=== PATIENT | male | born 1965 | race Caucasian/White ===

== ENCOUNTER 2024-12-13 01:51 | Emergency (ER) | payer MEDICAID, SELFPAY ==
[2024-12-13] VITALS (10 sets, daily range): BP systolic 129–137; BP diastolic 82–90; PULSE 78–95; RESP 20–94; TEMP 36.5–36.9; O2SAT 93–100; BMI 21.1
--- NOTE | 2024-12-13 02:01 | EDNOTE_ITS ---
ED General RME/HPI General Chief complaint: Shortness of Breath/Dyspnea Stated complaint: SOB Time Seen by Provider: 12/13/24 01:56 Arrival date/time: 12/13/24 01:51 RME / HPI RME / HPI narrative: This patient is a 59-year-old male with past medical history of COPD, active smoker smokes 6 cigarettes every day, history of hypertension, meth user presented to the ED with worsening shortness of breath started today associated with cough with phlegm white in color. He denied using oxygen at home, denied chest pain, fever chills, nausea vomiting, abdominal discomfort, burning dysuria. He stated that he could not lay down flat on the bed and also had exertional shortness of breath. He denied noticing any swelling on lower extremities. He is actively smoking and smokes 6 to 7 cigarettes every day. Patient is following up with primary care doctor as outpatient. He does use inhalers however ran out of his inhalers recently and did not recall the name of his inhalers. Patient denied receiving COVID and flu vaccine. He does not have oxygen at home. No recent travel or sick contacts. He endorses some bloating sensation and symptoms of GERD after eating food. Patient was given breathing treatment, Solu-Medrol lidocaine patch and Protonix x 1. Basic labs were ordered. Will follow-up with the basic labs and chest x- ray. Vitals reveal blood pressure 136/82 pulse 95 and respiratory rate 20. He was afebrile and saturating well around 6 L oxygen. Labs showed mildly elevated white count. WBC 10.8. Hemoglobin at 14.4. VBG showed pH 7.34 PCO2 65, PO2 64.Chemistry panel showed electrolytes unremarkable. Mild metabolic alkalosis. Kidney functions were stable. Blood glucose 132. Lactic acid 0.9. Corrected calcium 8.4. Mildly elevated liver enzymes AST 91 and ALT 63. Troponin I was negative. Procalcitonin was negative. Blood alcohol level less than 3. PMH Hypertension PSH not signficant SH smokes 6 cigarretes every day trying to quit smoking. Denies drinking alcohol or illicit drugs Allergies NKDA Home meds inahlers and some BP meds at home 5:30 patient was given additional breathing treatment due to wheezing heard on auscultation and calcium gluconate x 1. Patient was able to ambulate indepe ndently without getting short of breath and desatted only around 88-89% on room air. Will discharge patient after breathing treatment and medications were given on discharge. Patient most likely had acute on chronic COPD exacebration and was not wheezing at the time of discharge and was not hypoxic on ambulation. Patient was advised to take prednisone 40 mg for 5 days Use albuterol inhaler as needed for acute shortness of breath or wheezing as needed 1 puff 4 times a day Patient was advised to take Trelegy inhaler 1 puff every day for 1 week and use as needed In case of emergency or worsening signs/symptoms, call 911 or come back to the ED MD complaint: Worsening shortness of breath and cough Onset (ago): day(s) Associated symptoms: shortness of breath Related Data Previous Rx's ?Medication ?Instructions ?Recorded cipro 500 mg PO Q12HR ##14 3 zofran 4 mg PO Q4-6HRPRN PRN vomiti ng ##20 04/05/13 albuterol sulfate 90 mcg/actuation 1 inh inhalation QI D PRN shortness 12/13/24 aerosol inhaler of breath or wheezing #8.5 g claritza fluticasone fur. 200 mcg-umeclid 1 inh inhalation Q24H #28 ea 12/13/24 62.5 mcg-vilant 25 mcg inhalat.powder (Trelegy Ellipta) prednisone 20 mg tablet 40 mg (2 x 20 mg) PO QDAY 5 days 12/13/24 #10 tabs Allergies Allergy/AdvReac Type Severity Reaction Status Date / Time No Known Allergies Allergy Mild Uncoded 01/07/08 08:44 Review of Systems Review of Systems Systems Reviewed: All systems reviewed, normal except as documented ED Exam Narrative Physical exam: GENERAL APPEARANCE: AxOx4, generally well-appearing male no acute distress. Saturating well on RA HEENT: NC, AT. MMM. EOMI, clear conjunctiva, oropharynx clear. NECK: Supple without lymphadenopathy. No stiffness or restricted ROM. HEART: Mild tachycardia with regular rhythm, normal S1/S2, no m/r/g LUNGS: Moderate expiratory wheezing heard on auscultation. ABDOMEN: Soft, nontender, nondistended with good bowel sounds heard. BACK: No CVAT, no obvious deformity. EXTREMITIES: Without cyanosis, clubbing or edema. NEUROLOGICAL: Grossly nonfocal. Alert and oriented, moving all 4 extremities. CN not formally tested but appear grossly intact. Observed to ambulate with normal gait. Skin: Warm and dry without any rash. Psych: appropriate mood and affect Course Quality Measures none Orders Category Date Time Status EKG (ED ONLY) *Do not use* NOW Care 12/13/24 02:25 Completed Insert IV NOW Care 12/13/24 02:25 Active CXRP [XR chest 1V portable] Stat Exams 12/13/24 02:21 Taken EKG (ED Only) Stat Exams 12/13/24 02:21 Draft Alcohol, Blood Medical Stat Lab 12/13/24 02:35 Completed BNP [B-Type Natriuretic Peptide] Stat Lab 12/13/24 02:35 Completed CBC Stat Lab 12/13/24 02:35 Completed CMP [Comprehensive Metabolic Panel] Stat Lab 12/13/24 02:35 Completed Drug Screen,Urine Stat Lab 12/13/24 02:24 Ordered Lactate (Lactic Acid) Stat Lab 12/13/24 02:35 Completed Mag [Magnesium] Stat Lab 12/13/24 02:35 Completed Phosphorous Stat Lab 12/13/24 02:35 Completed Procalcitonin Stat Lab 12/13/24 02:35 Completed Troponin I Stat Lab 12/13/24 02:35 Completed Urinalysis Stat Lab 12/13/24 02:24 Ordered VBG [Venous Blood Gas] Stat Lab 12/13/24 02:35 Completed Albuterol/Ipratr Rt Mary Carmen [Duoneb Rt Mary Carmen] Med 12/13/24 02:21 Discontinued 3 ml INH X1 ONE Albuterol/Ipratr Rt Mary Carmen [Duoneb Rt Mary Carmen] Med 12/13/24 05:29 Once 3 ml INH X1 ONE MethylPREDNISolone. [SoluMEDROL Inj] Med 12/13/24 02:21 Discontinued 40 mg IVP X1 ONE MethylPREDNISolone.* [SoluMEDROL Inj] Med 12/13/24 02:31 Discontinued 125 mg IVP X1 ONE Nicotine Patch [Nicoderm Patch] Med 12/13/24 02:21 Discontinued 14 mg TOP X1 ONE Pantoprazole Inj [Protonix Inj] Med 12/13/24 02:21 Discontinued 40 mg IV X1 ONE Oxygen Delivery PRN RT 12/13/24 02:21 Active Vital Signs Vital signs: Vital Signs Temperature 97.7 F 12/13/24 01:54 Pulse Rate 95 12/13/24 01:54 Respiratory Rate 20 12/13/24 01:54 Blood Pressure 136/82 H 12/13/24 01:54 Pulse Oximetry (%) 100 12/13/24 01:54 Oxygen Delivery Method Nasal Cannula 12/13/24 01:54 Oxygen Flow Rate 6 12/13/24 01:54 Discharge Plan Plan Patient Disposition: HOME (Self Care) Prescriptions/Referrals Prescriptions/Med Rec: New prednisone 20 mg tablet 40 mg PO QDAY 5 Days Qty: 10 0RF Trelegy Ellipta 200-62.5-25 mcg blister with device 1 inh inhalation Q24H Qty: 28 1RF albuterol sulfate 90 mcg/actuation HFA aerosol inhaler 1 inh inhalation QID PRN (Reason: shortness of breath or wheezing) Qty: 8.5 1RF No Action cipro 500 mg PO Q12HR Qty: 14 0RF zofran 4 mg PO Q4-6HRPRN PRN (Reason: vomiting) Qty: 20 0RF Problem List Clinical Impression: Acute exacerbation of chronic obstructive airways disease, Uses inhaler device Patient/Caregiver Discharge Instructions Other Activity Instructions:: Patient most likely had acute on chronic COPD exacebration and was not wheezing at the time of discharge and was not hypoxic on ambulation. Patient was advised to take prednisone 40 mg for 5 days Use albuterol inhaler 1 puff 4 times a day as needed for acute shortness of breath or wheezing as needed Patient was advised to take Trelegy inhaler 1 puff every day for 1 week In case of emergency or worsening signs/symptoms, call 911 or come back to the ED Education Materials: COPD: Wheezing and Chest Tightness, COPD: Using Inhalers, COPD Meds Print Language: Citizen Of [place] Stand Alone Forms: Ilzy Award Info., Patient Portal Info Letter MDM Medication Administration(s) Medication Administration History Albuterol/Ipratropium (Albuterol/Ipratropium (Duoneb) Rt Mary Carmen 3 Ml Nebu) 3 ml INH X1 ONE Stop: 12/13/24 05:30 Discontinued Medications Albuterol/Ipratropium (Albuterol/Ipratropium (Duoneb) Rt Mary Carmen 3 Ml Nebu) 3 ml INH X1 ONE Stop: 12/13/24 02:22 Last Admin: 12/13/24 02:36 Dose: 3 ml Documented By: SD Methylprednisolone Sodium Succinate (Methylprednisolone Sod Succ 40 Mg Vial) 40 mg IVP X1 ONE Stop: 12/13/24 02:22 Last Admin: 12/13/24 02:58 Dose: Not Given Documented By: CCT Non-Admin Reason: Cancelled by Provider Methylprednisolone Sodium Succinate (Methylprednisolone Sod Succ 62.5 Mg/Ml 2ml Vial) 125 mg IVP X1 ONE Stop: 12/13/24 02:32 Last Admin: 12/13/24 02:57 Dose: 125 mg Documented By: CCT Nicotine (Nicotine Patch 14 Mg/24 Hr Patch.Td24) 14 mg TOP X1 ONE Stop: 12/13/24 02:22 Last Admin: 12/13/24 02:57 Dose: Not Given Documented By: CCT Non-Admin Reason: Patient Refused Pantoprazole Sodium (Pantoprazole Inj 40 Mg Vial) 40 mg IV X1 ONE Stop: 12/13/24 02:22 Last Admin: 12/13/24 02:57 Dose: 40 mg Documented By: CCT
--- NOTE | 2024-12-13 02:21 | XR_ITS ---
Examination: AP chest single view Technique one AP portable semiupright chest single view Exam date and time: December 13, 2024, 0230 hours Comparison April 05, 2013 INDICATIONS: Shortness of breath wheezing today. FINDINGS: COPD with hyperexpansion and mild bullous change at the apices Parenchymal scarring at the apices Early pneumonia both bases greater at the left base Normal heart size IMPRESSION: COPD Early pneumonia at the lung bases
--- NOTE | 2024-12-13 02:21 | EKG_ITS ---
[facility] Test Date: 2024-12-13 Pat Name: MAGALY FREITAS Department: Room: - Gender: Male Sound Mixer: : [id number] Requested By: Jayjay Edmonds Order Number: [id number] Reading MD: Jayjay Edmonds Measurements Intervals [place] Rate: 83 P: 69 CO: 141 QRS: 43 QRSD: 73 T: 69 QT: 361 QTc: 426 Interpretive Statements SINUS RHYTHM WITH FREQUENT SUPRAVENTRICULAR PREMATURE COMPLEXES ABNORMAL RHYTHM ECG No previous ECG available for comparison /store/S0/[id number].pdf
[2024-12-13] MEDS: ALBUTEROL/IPRATROPIUM (Duoneb) RT SOL 3 ML NEBU INH ×2 (02:36→06:31)
[2024-12-13 02:52] LABS: Base Excess, Venous 6 (-3-3); Lactate (Lactic Acid) 0.9 mMol/L (0.4-2.0); O2 Saturation, Venous 93 % (96-97); PCO2, Venous 65 mmHg (36-56); PO2, Venous 64 mmHg (15-58); pH, Venous 7.34 (7.33-7.66)
[2024-12-13 02:53] LABS: Basophils # (Auto) 0.1 Thou/mm3 (0.0-0.2); Basophils % (Auto) 1 % (0-2.5); Eosinophils # (Auto) 1.1 Thou/mm3 (0.0-0.5); Eosinophils % (Auto) 11 % (0-10); Hematocrit 42.8 % (41.0-53.0); Hemoglobin 14.4 g/dL (13.5-16.0); Immature Granulocytes % (Auto) 0 % (0-0); Immature Granulocytes Auto 0.03 Thou/mm3 (0.00-0.00); Lymphocytes # (Auto) 1.5 Thou/mm3 (1.0-4.8); Lymphocytes % (Auto) 14 % (10-50); Mean Corpuscular HGB Conc 33.6 g/dl (31.0-37.0); Mean Corpuscular Hemoglobin 30.7 pg (25.0-35.0); Mean Corpuscular Volume 91 fL (80-100); Monocytes # (Auto) 0.7 Thou/mm3 (0.0-0.8); Monocytes % (Auto) 7 % (0-12); Neutrophils # (Auto) 7.3 Thou/mm3 (1.8-7.7); Neutrophils % (Auto) 68 % (37-80); Nucleated Red Blood Cell % 0 /100 WBC (0); Platelet Count 205 Thou/mm3 (140-440); RDW Standard Deviation 45.8 fL (35.1-43.9); Red Blood Count 4.69 Miln/mm3 (4.50-5.90); White Blood Count 10.8 Thou/mm3 (3.8-10.6)
[2024-12-13] MEDS: PANTOPRAZOLE INJ 40 MG VIAL IV (02:57)
[2024-12-13] MEDS: MethylPREDNISolone SOD SUCC 62.5 MG/ML 2ML VIAL 125 MG IVP (02:57)
[2024-12-13 03:34] LABS: B-Type Natriuretic Peptide 41 pg/mL (0-100)
[2024-12-13 05:24] LABS: Alanine Aminotransferase 63 U/L (10-49); Albumin/Globulin Ratio 2.1 (1.2-2.2); Alcohol, Blood Medical < 3.0 mg/dL (0-10.0); Alkaline Phosphatase 91 U/L (46-116); Anion Gap 3 (7-16); Aspartate Amino Transferase 91 U/L (0-34); BUN/Creatinine Ratio 23 Ratio (12-20); Bilirubin,Total 0.6 mg/dL (0.3-1.2); Blood Urea Nitrogen 18 mg/dL (9-23); Calcium 8.4 mg/dL (8.3-10.6); Calcium (Corrected) 8.4 mg/dL (8.5-10.1); Carbon Dioxide 35.7 mMol/L (20.0-31.0); Chloride 106 mMol/L (98-107); Creatinine (Component) 0.8 mg/dL (0.6-1.3); Globulin 1.9 gm/dL (2.3-3.5); Glucose 132 mg/dL (74-106); Magnesium 2.5 mg/dL (1.6-2.6); Osmolality,Calculated 292 (275-295); Phosphorous 4.9 mg/dL (2.4-5.1); Potassium 4.6 mMol/L (3.4-5.1); Procalcitonin < 0.04 ng/ml (0.0-0.49); Sodium 145 mMol/L (136-145); Total Protein 5.9 gm/dL (5.7-8.2); Troponin I < 0.020 ng/mL (0.0-0.045); eGFR > 60 See Note
[2024-12-13] MEDS: CALCIUM GLUCONATE 10% INJ 1 GM/10 ML VIAL IV (06:07)
== END 2024-12-13 07:35 | disposition home or self-care (01) ==
PROVIDERS: Student in an Organized Health Care Education/Training Program; Emergency Provider Emergency Medicine; PCP Family Medicine
DX: J44.1 Chronic obstructive pulmonary disease with (acute) exacerbation (principal); F17.210 Nicotine dependence, cigarettes, uncomplicated; I10 Essential (primary) hypertension
CPT/HCPCS: 36415; 71045; 80053; 80307; 80320; 81001; 82803; 83605; 83735; 83880; 84100; 84145; 84484; 85025; 94640; 96374; 96375; 99284; A9270; J0612; J2470; J2919; G0480

== ENCOUNTER 2025-03-11 00:42 | Emergency (ER) | payer MEDICAID, SELFPAY ==
[2025-03-11 01:00] VITALS: PULSE 82; RESP 18; O2SAT 98; BMI 25.8
--- NOTE | 2025-03-11 01:39 | PC.NURSE ---
I was informed by codie Hendrickson that pt he no longer wished to be seen and left. Charge nurse Atul made aware
--- NOTE | 2025-03-11 01:53 | PD.EDADDENDU ---
Emergency Room Addendum Addendum Narrative: This patient left before triage. I did not do history and physical exam of this patient because he left from the emergency department.
== END 2025-03-11 01:50 | disposition left against medical advice (07) ==
LOC: SERX 01:47
PROVIDERS: Emergency Provider Emergency Medicine
DX: Z53.21 Procedure and treatment not carried out due to patient leaving prior to being seen by health care provider (principal)
CPT/HCPCS: 99282